=== PATIENT | female | born 1970 | race Caucasian/White ===

== ENCOUNTER 2023-09-04 21:33 | Inpatient (IN) | payer MEDICAID ==
[~2023-09-04] VITALS: Ht 165.1 cm; Wt 63.5 kg
[2023-09-04 22:12] LABS: ALCOHOL, URINE DRUG SCREEN NEGATIVE (NEGATIVE); AMPHET/METH SCREEN,URINE POSITIVE (NEGATIVE); BARBITURATE SCREEN, URINE NEGATIVE (NEGATIVE); BENZODIAZEPINES SCREEN,URINE POSITIVE (NEGATIVE); CANNABINOID SCREEN,URINE NEGATIVE (NEGATIVE); COCAINE SCREEN,URINE NEGATIVE (NEGATIVE); METHADONE SCREEN, URINE NEGATIVE (NEGATIVE); OPIATE SCREEN,URINE NEGATIVE (NEGATIVE); PHENCYCLIDINE SCREEN,URINE NEGATIVE (NEGATIVE)
[2023-09-04 22:16] LABS: COVID AG,FIA SOURCE NASAL SWAB
[2023-09-04 22:16] LABS: BASOPHILS % (AUTO) 0.9 % (0.0-2.0); EOSINOPHILS % (AUTO) 1.7 % (1.0-6.0); HEMATOCRIT 26.6 % (36-46); HEMOGLOBIN 7.8 g/dL (12.0-16.0); LYMPHOCYTES # (AUTO) 1.4 K/uL (1.0-4.8); LYMPHOCYTES % (AUTO) 31.4 % (22.0-44.0); MEAN CORPUSCULAR HEMOGLOBIN 18.6 pg (26.0-34.0); MEAN CORPUSCULAR HGB CONC 29.4 G/dL (31.0-37.0); MEAN CORPUSCULAR VOLUME 63 fL (80-100); MONOCYTES # (AUTO) 0.6 K/uL (0.1-1.0); MONOCYTES % (AUTO) 12.4 % (2.0-9.0); NEUTROPHILS # (AUTO) 2.5 K/uL (1.8-7.7); NEUTROPHILS % (AUTO) 53.6 % (40.0-70.0); PLATELET COUNT (AUTO) 478 K/uL (150-450); RED BLOOD CELL COUNT(AUTO) 4.21 MIL/uL (4.00-5.20); RED CELL DISTRIBUTION WIDTH 21.5 % (11.5-14.5); WHITE BLOOD COUNT (AUTO) 4.6 K/uL (4.5-11.0)
[2023-09-04 22:25] LABS: ANION GAP 4 mmol/L (8-16); CALCIUM, TOTAL 8.6 mg/dL (8.8-10.5); CARBON DIOXIDE 31 mmol/L (22-29); CHLORIDE 104 mmol/L (98-107); CREATININE 0.55 mg/dL (0.60-1.30); GLOMERULAR FILTR. RATE CALC > 60 mL/min (>60); GLUCOSE,RANDOM 83 mg/dL (70-110); POTASSIUM 3.6 mmol/L (3.5-5.1); SODIUM SERUM 139 mmol/L (136-145); UREA NITROGEN, BLOOD 15 mg/dL (7-18)
[2023-09-04 22:32] LABS: SARS-COV2 (COVID) ANTIGEN,FIA Negative (Negative)
[2023-09-04 22:32] LABS: ALCOHOL, BLOOD (SERUM) < 3 mg/dL (0-10)
[2023-09-04 22:33] LABS: RBC MORPHOLOGY COMMENT ABNORMAL RBC MORPH
[2023-09-04 23:43] LABS: % IRON SATURATION 3.2 % (22-44)
[2023-09-05] MEDS: HALOPERIDOL 5 MG TABLET PO PRN (01:51)
[2023-09-05] MEDS: ZOLPIDEM TARTRATE 10 MG TABLET PO PRN (01:51)
[2023-09-05] MEDS: LORazepam 2 MG TABLET PO PRN (01:51)
[2023-09-05 02:47] VITALS: BP 98/56; PULSE 81; RESP 16; TEMP 97.7; O2SAT 100
[2023-09-05] MEDS ORDERED: PROMETHAZINE HCL 25 MG TABLET PO PRN (08:30)
[2023-09-05] MEDS ORDERED: TUBERCULIN, PURIFIED PROTEIN DERIVATIVE 5 TU/0.1 ML SYRINGE ID ONE (08:30)
[2023-09-05] MEDS ORDERED: HydrOXYzine PAMOATE 50 MG CAPSULE PO PRN (08:30)
[2023-09-05] MEDS ORDERED: LOPERAMIDE HCL 2 MG CAPSULE PO PRN (08:30)
[2023-09-05] MEDS ORDERED: GuaiFENesin/D-METHORPHAN [SUGAR-FREE] 200-20MG/10 ML SYRUP UDCUP PO PRN (08:30)
[2023-09-05] MEDS ORDERED: MAG HYDROX/ALUMINUM HYD/SIMETH ES 30 ML SUSPENSION UDCUP PO PRN (08:30)
[2023-09-05] MEDS ORDERED: ACETAMINOPHEN 325 MG TABLET PO PRN (08:30)
[2023-09-05] MEDS ORDERED: MAGNESIUM HYDROXIDE SUSPENSION 30 ML UDCUP PO PRN (08:30)
[2023-09-05 08:38] VITALS: BP 110/60; PULSE 88; RESP 16; TEMP 97.5; O2SAT 100
[2023-09-05 09:19] VITALS: BP 110/60; PULSE 88; RESP 16; TEMP 97.5; O2SAT 100
[2023-09-05] MEDS: OLANZapine 5 MG RAPDIS TABLET PO SCH (09:53)
[2023-09-05] MEDS: NALTREXONE HCL 50 MG TABLET PO SCH (09:53)
[2023-09-05] MEDS: THIAMINE 100 MG TABLET PO SCH (09:53)
[2023-09-05] MEDS: MULTIVITAMINS WITH MINERALS, THERAPEUTIC TABLET PO SCH (09:53)
[2023-09-05] MEDS: DIVALPROEX SODIUM 500 MG ER TABLET PO SCH (09:53)
[2023-09-05] MEDS: FOLIC ACID 1 MG TABLET PO SCH (09:53)
[2023-09-05] MEDS: FERROUS SULFATE 325 MG EC TABLET PO SCH (16:25)
[2023-09-05] MEDS: MELATONIN 5 MG TABLET PO SCH (20:56)
[2023-09-05 21:14] VITALS: BP 101/65; PULSE 75; RESP 16; TEMP 97.7; O2SAT 98
[2023-09-06 08:16] VITALS: BP 102/67; PULSE 84; RESP 16; TEMP 97.9; O2SAT 100
[2023-09-06 08:27] LABS: CHOL/HDL RATIO 2.5 (3.9-5.7)
[2023-09-06 08:49] LABS: HEMOGLOBIN A1C 5.5 % (3.8-5.6)
[2023-09-06] MEDS ORDERED: PARO-37 PO (18:30)
[2023-09-06] MEDS ORDERED: MELA5TAB40 PO (18:30)
[2023-09-06] MEDS ORDERED: PRAZ1 PO (18:30)
[2023-09-06] MEDS ORDERED: GABA-1181 PO (18:30)
[2023-09-06] MEDS ORDERED: OLAN5TAB94 PO (18:30)
[2023-09-06] MEDS ORDERED: GABAPENTIN 300 MG CAPSULE PO PRN (18:30)
[2023-09-06] MEDS ORDERED: NALT50TA33 PO (18:30)
[2023-09-06] MEDS ORDERED: PRAZOSIN HCL 1 MG CAPSULE PO PRN (18:30)
[2023-09-06 20:54] VITALS: BP 100/60; PULSE 72; RESP 17; TEMP 96.7; O2SAT 100
[2023-09-06] MEDS: PARoxetine HCL 20 MG TABLET PO SCH (21:00)
[2023-09-06] MEDS: OLANZapine 5 MG RAPDIS TABLET PO SCH (21:00)
[2023-09-07 08:13] VITALS: BP 103/65; PULSE 95; RESP 17; TEMP 97.7; O2SAT 99
[2023-09-07] MEDS ORDERED: MELA5TAB40 PO (09:31)
[2023-09-07] MEDS ORDERED: PARO-38 PO (09:31)
[2023-09-07] MEDS ORDERED: OLAN5TAB94 PO (09:31)
[2023-09-07] MEDS ORDERED: PRAZ1 PO (09:31)
[2023-09-07] MEDS ORDERED: NALT50TA33 PO (09:31)
[2023-09-07] MEDS ORDERED: GABA-1181 PO (09:38)
[2023-09-07] MEDS ORDERED: FERR325T27 PO (09:47)
[2023-09-07 20:53] VITALS: BP 98/65; PULSE 99; RESP 18; TEMP 98.2; O2SAT 100
[2023-09-08 21:43] VITALS: BP 99/60; PULSE 99; RESP 16; TEMP 97.8; O2SAT 99
[2023-09-09 08:08] VITALS: BP 100/57; PULSE 76; RESP 16; TEMP 97.6; O2SAT 99
[2023-09-09] MEDS: NICOTINE 21 MG/24 HOUR PATCH TD ONE (15:22)
[2023-09-09 20:20] VITALS: BP 123/72; PULSE 101; TEMP 97.7; O2SAT 100
[2023-09-10 08:02] VITALS: BP 110/72; PULSE 76; RESP 16; TEMP 98; O2SAT 99
[2023-09-10] MEDS: NICOTINE 21 MG/24 HOUR PATCH TD SCH (08:08)
[2023-09-10 20:58] VITALS: BP 100/57; PULSE 97; RESP 16; TEMP 99; O2SAT 99
[2023-09-11 08:26] LABS: APPEARANCE,URINE CLEAR (CLEAR); BILIRUBIN,URINE NEGATIVE (NEGATIVE); COLOR,URINE LIGHT YELLOW (YELLOW); GLUCOSE, URINE (UA) NEGATIVE (NEGATIVE); HCG,QUAL URINE NEGATIVE (NEGATIVE); KETONES,URINE NEGATIVE (NEGATIVE); LEUKOCYTE ESTERASE ,URINE NEGATIVE (NEGATIVE); NITRATE,URINE NEGATIVE (NEGATIVE); OCCULT BLOOD,URINE NEGATIVE (NEGATIVE); PH,URINE 7.5 (5.0-8.0); PH,URINE DRUG SCREEN 7.5 (5.0-8.0); PROTEIN,URINE NEGATIVE (NEGATIVE); SPECIFIC GRAVITIY, URINE 1.014 (1.003-1.030); UROBILINOGEN,URINE <=1.0 mg/dL (<=1.0)
[2023-09-11 08:31] VITALS: BP 110/66; PULSE 89; RESP 16; TEMP 97.6; O2SAT 97
[2023-09-11 08:32] LABS: ALCOHOL, URINE DRUG SCREEN NEGATIVE (NEGATIVE); AMPHET/METH SCREEN,URINE NEGATIVE (NEGATIVE); BARBITURATE SCREEN, URINE NEGATIVE (NEGATIVE); BENZODIAZEPINES SCREEN,URINE NEGATIVE (NEGATIVE); CANNABINOID SCREEN,URINE NEGATIVE (NEGATIVE); COCAINE SCREEN,URINE NEGATIVE (NEGATIVE); METHADONE SCREEN, URINE NEGATIVE (NEGATIVE); OPIATE SCREEN,URINE NEGATIVE (NEGATIVE); PHENCYCLIDINE SCREEN,URINE NEGATIVE (NEGATIVE)
[2023-09-11 20:49] VITALS: BP 99/73; PULSE 79; RESP 16; TEMP 97.8; O2SAT 99
[2023-09-12 08:29] VITALS: BP 112/66; PULSE 74; RESP 16; TEMP 97.6; O2SAT 97
== END 2023-09-12 15:00 | disposition home or self-care (01) | DRG 750 ==
LOC: EMS 21:35 → B3A 09-05 02:18
PROVIDERS: ADMIT Psychiatry & Neurology Psychiatry; ATTEND Psychiatry & Neurology Psychiatry
PROC: GZHZZZZ Group Psychotherapy (ICD-10-PCS; principal; 2023-09-06)
PROC: GZ51ZZZ Individual Psychotherapy, Behavioral (ICD-10-PCS; 2023-09-06)
DX: F20.9 Schizophrenia, unspecified (principal); R45.851 Suicidal ideations; E11.9 Type 2 diabetes mellitus without complications; D50.9 Iron deficiency anemia, unspecified; F17.200 Nicotine dependence, unspecified, uncomplicated; F15.10 Other stimulant abuse, uncomplicated; Z20.822 Contact with and (suspected) exposure to COVID-19; F41.9 Anxiety disorder, unspecified; G47.00 Insomnia, unspecified; K59.00 Constipation, unspecified; J44.9 Chronic obstructive pulmonary disease, unspecified; Z59.00 Homelessness unspecified
CPT/HCPCS: 80048; 80061; 80307; 81003; 83036; 83540; 83550; 84703; 85025; 86592; 99285; G0480; Q9967

== ENCOUNTER 2023-12-29 09:58 | Inpatient (IN) | payer MEDICAID ==
[~2023-12-29] VITALS: Ht 160 cm; Wt 41.7 kg
[~2023-12-29 09:58] MED LIST: FLUO-418 PO; MELA5TAB40 PO; MIDO5TAB29 PO; NALT50TA33 PO; OLAN5TAB94 PO
[2023-12-29 10:38] LABS: BASOPHILS % (AUTO) 0.6 % (0.0-2.0); EOSINOPHILS % (AUTO) 0.3 % (1.0-6.0); HEMATOCRIT 30.1 % (36-46); HEMOGLOBIN 9.7 g/dL (12.0-16.0); LYMPHOCYTES % (AUTO) 15.7 % (22.0-44.0); MEAN CORPUSCULAR HGB CONC 32.2 G/dL (31.0-37.0); MEAN CORPUSCULAR VOLUME 84 fL (80-100); MONOCYTES # (AUTO) 0.8 K/uL (0.1-1.0); MONOCYTES % (AUTO) 12.4 % (2.0-9.0); NEUTROPHILS # (AUTO) 4.6 K/uL (1.8-7.7); PLATELET COUNT (AUTO) 263 K/uL (150-450); RED BLOOD CELL COUNT(AUTO) 3.58 MIL/uL (4.00-5.20); RED CELL DISTRIBUTION WIDTH 17.6 % (11.5-14.5); WHITE BLOOD COUNT (AUTO) 6.6 K/uL (4.5-11.0)
[2023-12-29 10:45] LABS: ANION GAP 9 mmol/L (8-16); CALCIUM, TOTAL 8.6 mg/dL (8.8-10.5); CARBON DIOXIDE 25 mmol/L (22-29); CHLORIDE 103 mmol/L (98-107); CREATININE 0.65 mg/dL (0.60-1.30); GLOMERULAR FILTR. RATE CALC > 60 mL/min (>60); GLUCOSE,RANDOM 63 mg/dL (70-110); POTASSIUM 3.2 mmol/L (3.5-5.1); SODIUM SERUM 137 mmol/L (136-145); UREA NITROGEN, BLOOD 25 mg/dL (7-18)
[2023-12-29] MEDS ORDERED: ZOLPIDEM TARTRATE 10 MG TABLET PO PRN ×2 (10:45→21:15)
[2023-12-29] MEDS: HALOPERIDOL LACTATE 5 MG/ML VIAL IM ONE (10:47)
[2023-12-29 11:21] LABS: ALCOHOL, BLOOD (SERUM) < 3 mg/dL (0-10)
[2023-12-29 11:26] LABS: COVID AG,FIA SOURCE NASAL SWAB
[2023-12-29 12:12] LABS: SARS-COV2 (COVID) ANTIGEN,FIA Negative (Negative)
[2023-12-29] MEDS: POTASSIUM CHLORIDE 10 MEQ ER TABLET PO ONE (14:36)
[2023-12-29 14:47] LABS: APPEARANCE,URINE TURBID (CLEAR); BILIRUBIN,URINE NEGATIVE (NEGATIVE); COLOR,URINE LIGHT ORANGE (YELLOW); GLUCOSE, URINE (UA) NEGATIVE (NEGATIVE); LEUKOCYTE ESTERASE ,URINE NEGATIVE (NEGATIVE); NITRATE,URINE NEGATIVE (NEGATIVE); OCCULT BLOOD,URINE LARGE (NEGATIVE); PH,URINE 5.5 (5.0-8.0); PROTEIN,URINE 100-200,SEE CONFIRM mg/dL (NEGATIVE); UROBILINOGEN,URINE <=1.0 mg/dL (<=1.0)
[2023-12-29 14:49] LABS: PH,URINE DRUG SCREEN 5.5 (5.0-8.0)
[2023-12-29 14:57] LABS: SULFOSALICYLIC ACID,URINE 2+ (Negative)
[2023-12-29 15:00] LABS: BACTERIA,URINE Few /HPF (None Seen); SQUAMOUS EPITHELIAL CELL,UR Few /LPF (None Seen); WBC,URINE None Seen /HPF (0-5)
[2023-12-29 15:12] LABS: ALCOHOL, URINE DRUG SCREEN NEGATIVE (NEGATIVE); AMPHET/METH SCREEN,URINE POSITIVE (NEGATIVE); BARBITURATE SCREEN, URINE NEGATIVE (NEGATIVE); BENZODIAZEPINES SCREEN,URINE POSITIVE (NEGATIVE); CANNABINOID SCREEN,URINE POSITIVE (NEGATIVE); COCAINE SCREEN,URINE NEGATIVE (NEGATIVE); METHADONE SCREEN, URINE NEGATIVE (NEGATIVE); OPIATE SCREEN,URINE POSITIVE (NEGATIVE); PHENCYCLIDINE SCREEN,URINE NEGATIVE (NEGATIVE)
[2023-12-29 20:08] VITALS: O2SAT 94
[2023-12-29 20:27] LABS: GLUCOMETER DEV NAME(LOC) ERT.6; GLUCOSE,POINT OF CARE 79 MG/DL (70-110)
[2023-12-29] MEDS ORDERED: HALOPERIDOL 5 MG TABLET PO PRN (21:15)
[2023-12-29] MEDS ORDERED: LORazepam 2 MG TABLET PO PRN (21:15)
[2023-12-29 22:04] VITALS: BP 96/55; PULSE 86; RESP 17; TEMP 98.3; O2SAT 99
[2023-12-30 08:29] VITALS: BP 100/62; PULSE 86; RESP 16; TEMP 97.6; O2SAT 100
[2023-12-30] MEDS: HALOPERIDOL 5 MG TABLET PO PRN (09:12)
[2023-12-30] MEDS: LORazepam 2 MG TABLET PO PRN (09:13)
[2023-12-30] MEDS ORDERED: CloNIDine HCL 0.1 MG TABLET PO PRN (10:15)
[2023-12-30] MEDS ORDERED: LOPERAMIDE HCL 2 MG CAPSULE PO PRN (10:15)
[2023-12-30] MEDS ORDERED: ACETAMINOPHEN 325 MG TABLET PO PRN (10:15)
[2023-12-30] MEDS ORDERED: NICOTINE 14 MG/24 HOUR PATCH TD PRN (10:15)
[2023-12-30] MEDS ORDERED: ALBUTEROL SULFATE HFA 90 MCG/PUFF 8 GM INHALER IH PRN (10:15)
[2023-12-30] MEDS ORDERED: IBUPROFEN 400 MG TABLET PO PRN (10:15)
[2023-12-30] MEDS ORDERED: ONDANSETRON 4 MG TABLET PO PRN (10:15)
[2023-12-30] MEDS ORDERED: DOCUSATE SODIUM 100 MG CAPSULE PO PRN (10:15)
[2023-12-30] MEDS ORDERED: MAGNESIUM HYDROXIDE SUSPENSION 30 ML UDCUP PO PRN (10:15)
[2023-12-30] MEDS ORDERED: MAG HYDROX/ALUMINUM HYD/SIMETH ES 30 ML SUSPENSION UDCUP PO PRN (10:15)
[2023-12-30] MEDS ORDERED: PETROLATUM,WHITE 28 GM JELLY TP PRN (10:15)
[2023-12-30] MEDS ORDERED: GuaiFENesin/D-METHORPHAN [SUGAR-FREE] 200-20MG/10 ML SYRUP UDCUP PO PRN (10:15)
[2023-12-30 20:44] VITALS: BP 94/62; PULSE 78; RESP 16; TEMP 98; O2SAT 99
[2023-12-31] MEDS: FLUoxetine HCL 20 MG CAPSULE PO SCH (08:09)
[2023-12-31] MEDS: OLANZapine 5 MG TABLET PO SCH (08:09)
[2023-12-31] MEDS: NALTREXONE HCL 50 MG TABLET PO SCH (08:09)
[2023-12-31 08:25] VITALS: BP 105/69; PULSE 79; RESP 16; TEMP 98; O2SAT 99
[2023-12-31 08:37] LABS: BASOPHILS % (AUTO) 0.3 % (0.0-2.0); EOSINOPHILS % (AUTO) 1.9 % (1.0-6.0); HEMOGLOBIN 10.6 g/dL (12.0-16.0); LYMPHOCYTES # (AUTO) 1.5 K/uL (1.0-4.8); LYMPHOCYTES % (AUTO) 34.6 % (22.0-44.0); MEAN CORPUSCULAR HEMOGLOBIN 27.1 pg (26.0-34.0); MEAN CORPUSCULAR VOLUME 85 fL (80-100); MONOCYTES # (AUTO) 0.6 K/uL (0.1-1.0); MONOCYTES % (AUTO) 12.5 % (2.0-9.0); NEUTROPHILS # (AUTO) 2.3 K/uL (1.8-7.7); NEUTROPHILS % (AUTO) 50.7 % (40.0-70.0); PLATELET COUNT (AUTO) 266 K/uL (150-450); RED BLOOD CELL COUNT(AUTO) 3.89 MIL/uL (4.00-5.20); RED CELL DISTRIBUTION WIDTH 17.7 % (11.5-14.5); WHITE BLOOD COUNT (AUTO) 4.5 K/uL (4.5-11.0)
[2023-12-31 09:02] LABS: HEMOGLOBIN A1C 5.4 % (3.8-5.6)
[2023-12-31 09:14] LABS: ALANINE AMINOTRANSFERASE 31 U/L (12-78); ALBUMIN 2.4 g/dL (3.4-5.0); ALKALINE PHOSPHATASE 71 U/L (46-116); ANION GAP 4 mmol/L (8-16); ASPARTATE AMINOTRANSFERASE 31 U/L (15-37); BILIRUBIN,TOTAL 0.3 mg/dL (0.1-1.0); CALCIUM, TOTAL 7.9 mg/dL (8.8-10.5); CARBON DIOXIDE 25 mmol/L (22-29); CHLORIDE 106 mmol/L (98-107); CHOL/HDL RATIO 2.3 (3.9-5.7); CHOLESTEROL 160 mg/dL (131-200); CREATININE 0.45 mg/dL (0.60-1.30); GLOMERULAR FILTR. RATE CALC > 60 mL/min (>60); GLUCOSE,RANDOM 73 mg/dL (70-110); HDL CHOLESTEROL 70 mg/dL (40-60); LDL CHOL (CALC.) 77 mg/dL (0-130); POTASSIUM 3.9 mmol/L (3.5-5.1); SODIUM SERUM 135 mmol/L (136-145); THYROID STIMULATING HORMONE 1.09 uIU/mL (0.36-3.74); TRIGLYCERIDES 65 mg/dL (15-150); UREA NITROGEN, BLOOD 7 mg/dL (7-18)
[2023-12-31 22:00] VITALS: RESP 16
[2024-01-01 08:22] VITALS: BP 102/69; PULSE 73; RESP 16; TEMP 97.8; O2SAT 100
[2024-01-01] MEDS ORDERED: OLAN5TAB52 PO (15:58)
[2024-01-01] MEDS ORDERED: FLUO-418 PO (15:59)
[2024-01-02] MEDS ORDERED: FLUO-418 PO (09:09)
[2024-01-02] MEDS ORDERED: NALT50TA33 PO (09:09)
[2024-01-02] MEDS ORDERED: OLAN5TAB52 PO (09:09)
== END 2024-01-01 18:06 | disposition home or self-care (01) | DRG 750 ==
LOC: EMS 09:58 → B3A 20:09
PROVIDERS: ADMIT Psychiatry & Neurology Child & Adolescent Psychiatry; ATTEND Psychiatry & Neurology Child & Adolescent Psychiatry
PROC: GZ56ZZZ Individual Psychotherapy, Supportive (ICD-10-PCS; principal; 2023-12-30)
DX: F20.9 Schizophrenia, unspecified (principal); E11.9 Type 2 diabetes mellitus without complications; D64.9 Anemia, unspecified; E78.5 Hyperlipidemia, unspecified; E87.6 Hypokalemia; F12.90 Cannabis use, unspecified, uncomplicated; Z20.822 Contact with and (suspected) exposure to COVID-19; F14.90 Cocaine use, unspecified, uncomplicated; G47.00 Insomnia, unspecified; I10 Essential (primary) hypertension; Z78.1 Physical restraint status; Z87.891 Personal history of nicotine dependence
CPT/HCPCS: 80048; 80053; 80061; 80307; 81001; 81002; 82962; 83036; 84443; 85025; 99285; G0480; J1630

== ENCOUNTER → 2024-05-15 | Emergency (ER) | payer MEDICAID, OTHER ==
[~2024-05-15] VITALS: Ht 165.1 cm; Wt 54.5 kg
[~2024-05-15] MED LIST changes: -MELA5TAB40 PO; -MIDO5TAB29 PO; +OLAN5TAB52 PO; -OLAN5TAB94 PO
[2024-05-15 00:19] VITALS: TEMP 98.5
[2024-05-15 03:49] VITALS: BP 96/59; PULSE 65; RESP 15; O2SAT 98
== END ==
LOC: EMS 00:08
DX: R60.0 Localized edema (principal); E11.9 Type 2 diabetes mellitus without complications; I10 Essential (primary) hypertension; F12.90 Cannabis use, unspecified, uncomplicated; F17.210 Nicotine dependence, cigarettes, uncomplicated; Z79.899 Other long term (current) drug therapy
CPT/HCPCS: 99283; 99285

== ENCOUNTER 2024-05-17 18:32 | Emergency (ER) | payer MEDICAID, OTHER ==
[~2024-05-17] VITALS: Ht 157.5 cm; Wt 53.0 kg
[2024-05-17 19:40] LABS: BASOPHILS % (AUTO) 0.6 % (0.0-2.0); EOSINOPHILS % (AUTO) 2.5 % (1.0-6.0); HEMATOCRIT 33.1 % (36-46); HEMOGLOBIN 10.6 g/dL (12.0-16.0); LYMPHOCYTES # (AUTO) 1.3 K/uL (1.0-4.8); LYMPHOCYTES % (AUTO) 27.5 % (22.0-44.0); MEAN CORPUSCULAR HEMOGLOBIN 26.5 pg (26.0-34.0); MEAN CORPUSCULAR HGB CONC 31.9 G/dL (31.0-37.0); MEAN CORPUSCULAR VOLUME 83 fL (80-100); MONOCYTES # (AUTO) 0.7 K/uL (0.1-1.0); MONOCYTES % (AUTO) 13.6 % (2.0-9.0); NEUTROPHILS # (AUTO) 2.7 K/uL (1.8-7.7); NEUTROPHILS % (AUTO) 55.8 % (40.0-70.0); PLATELET COUNT (AUTO) 424 K/uL (150-450); RED BLOOD CELL COUNT(AUTO) 3.99 MIL/uL (4.00-5.20); RED CELL DISTRIBUTION WIDTH 16.3 % (11.5-14.5); WHITE BLOOD COUNT (AUTO) 4.8 K/uL (4.5-11.0)
[2024-05-17 19:45] LABS: ANION GAP 5 mmol/L (8-16); CALCIUM, TOTAL 8.8 mg/dL (8.8-10.5); CARBON DIOXIDE 30 mmol/L (22-29); CHLORIDE 102 mmol/L (98-107); CREATININE 0.63 mg/dL (0.60-1.30); GLOMERULAR FILTR. RATE CALC > 60 mL/min (>60); GLUCOSE,RANDOM 79 mg/dL (70-110); POTASSIUM 4.3 mmol/L (3.5-5.1); SODIUM SERUM 137 mmol/L (136-145); UREA NITROGEN, BLOOD 11 mg/dL (7-18)
[2024-05-17 19:50] LABS: ALBUMIN 2.5 g/dL (3.4-5.0); BILIRUBIN,DIRECT 0.1 mg/dL (0.00-0.20); BILIRUBIN,TOTAL 0.2 mg/dL (0.1-1.0); TOTAL PROTEIN, SERUM 7.4 g/dL (6.4-8.2)
[2024-05-17 20:40] VITALS: TEMP 97.3
[2024-05-17] MEDS: ACETAMINOPHEN 500 MG TABLET PO ONE (20:46)
[2024-05-17] MEDS: SODIUM CHLORIDE 0.9% 1,000 ML IV ONE (20:47)
[2024-05-17 21:45] VITALS: BP 124/71; PULSE 68; RESP 16; O2SAT 100
== END 2024-05-17 22:53 | disposition short-term general hospital (02) ==
LOC: EMS 18:33
DX: R53.1 Weakness (principal); E86.0 Dehydration; I10 Essential (primary) hypertension; E11.9 Type 2 diabetes mellitus without complications; F12.90 Cannabis use, unspecified, uncomplicated; F17.210 Nicotine dependence, cigarettes, uncomplicated; F25.9 Schizoaffective disorder, unspecified; Z79.899 Other long term (current) drug therapy
CPT/HCPCS: 99283; 96360; 80048; 80076; 85025; 36415; J7030